=== PATIENT | male | born 1980 | race Caucasian/White ===

== ENCOUNTER 2018-09-05 11:02 | Emergency (ER) | payer OTHER ==
[2018-09-05 11:15] VITALS: BP 135/93
[2018-09-05] MEDS ORDERED: Naproxen TAB* 250 MG PO ONE (11:22)
--- NOTE | 2018-09-05 11:25 | UC ---
Hand/Wrist HPI - HPI Summary HPI Summary: 38-year-old male presents with reports of injury to his left hand. States just prior to arrival he was mowing lawn on a riding lawnmower and he accidentally struck his left hand on a wooden sign. States he has a laceration to the back of his left hand over the fifth MCP and complains of pain to the lateral aspect of his left hand. Pain worsens with any type of movement. Bleeding controlled prior to arrival. States his most recent tetanus was within the last 5 years. Denies any numbness or tingling. - History Of Current Complaint Chief Complaint: UCUpperExtremity Stated Complaint: HAND LACERATION Time Seen by Provider: 09/05/18 11:11 Hx Obtained From: Patient Pain Intensity: 7 - Allergies/Home Medications Allergies/Adverse Reactions: Allergies Allergy/AdvReac Type Severity Reaction Status Date / Time No Known Allergies Allergy Verified 09/05/18 11:10 PMH/Surg Hx/FS Hx/Imm Hx Previously Healthy: Yes - Denies significant PMH - Surgical History Surgical History: Yes Surgery Procedure, Year, and Place: 2007 L shoulder - Family History Known Family History: Positive: Non-Contributory - Social History Occupation: Employed Full-time Lives: With Family Alcohol Use: Occasionally Substance Use Type: None Smoking Status (MU): Heavy Every Day Tobacco Smoker Type: Cigarettes Amount Used/How Often: 1/2 ppd Have You Smoked in the Last Year: Yes Household Exposure Type: Cigarettes Review of Systems All Other Systems Reviewed And Are Negative: Yes Constitutional: Positive: Negative Skin: Positive: Other - See HPI Respiratory: Positive: Negative Cardiovascular: Positive: Negative Gastrointestinal: Positive: Negative Motor: Negative: Weakness Neurovascular: Negative: Decreased Sensation Musculoskeletal: Positive: Decreased ROM, Other: - See HPI Neurological: Positive: Negative Is Patient Immunocompromised?: No Physical Exam - Summary Physical Exam Summary: GENERAL APPEARANCE: Well developed, well nourished, alert and cooperative, and appears to be in no acute distress. CARDIAC: Normal S1 and S2. No S3, S4 or murmurs. Rhythm is regular. There is no peripheral edema, cyanosis or pallor. Extremities are warm and well perfused. Capillary refill is less than 2 seconds. Peripheral pulses intact. LUNGS: Clear to auscultation without rales, rhonchi, wheezing or diminished breath sounds. ABDOMEN: Positive bowel sounds. Soft, nondistended, nontender. No guarding or rebound. No masses or hepatosplenomegally. MUSKULOSKELETAL: Normal muscular development. Normal gait. EXTREMITIES: Tenderness over the left 5th metacarpal without gross deformity. There is ecchymosis to the palmar aspect of the the lateral left hand in the vicinity of his tenderness. Eccymosis with mild edema over the proximal phalanx of the left ring finger without gross deformity. Circulation and sensation intact. SKIN: Skin normal color, texture and turgor. Multiple abrasions noted to posterior left hand over the MCP. Bleeding controlled. Triage Information Reviewed: Yes Vital Signs: Initial Vital Signs Temp 98.1 F 09/05/18 11:10 Pulse 71 09/05/18 11:10 Resp 20 09/05/18 11:10 BP 135/93 09/05/18 11:10 Pulse Ox 99 09/05/18 11:10 Vital Signs Reviewed: Yes Procedures - Splinting Left Upper Extremity Hand-Made Type: orthoglass Splint: ulnar Pre-Proc Neuro Vasc Exam: normal Post-Proc Neuro Vasc Exam: normal Diagnostics - Radiology No standard instances Radiology Interpretation Completed By: Radiologist Summary of Radiographic Findings: Order Information: HAND - LEFT MINIMUM 3 VIEWS. Accession Number: [id number]. CPT: 93501. Indication: Left hand pain. 5 views of the left hand are reviewed. There is no fracture or dislocation noted. No other bone or joint abnormality is identified. IMPRESSION : No fracture of the left hand is noted. Hand/Wrist Course/Dx - Course Course Of Treatment: 38-year-old male presents with reports of injury to his left hand. States just prior to arrival he was mowing lawn on a riding lawnmower and he accidentally struck his left hand on a wooden sign. States he has a laceration to the back of his left hand over the fifth MCP and complains of pain to the lateral aspect of his left hand. Pain worsens with any type of movement. Bleeding controlled prior to arrival. States his most recent tetanus was within the last 5 years. Denies any numbness or tingling. Afebrile. Vital signs stable. Patient had tenderness over the left 5th metacarpal without gross deformity. There is ecchymosis to the palmar aspect of the the lateral left hand in the vicinity of his tenderness. Eccymosis with mild edema over the proximal phalanx of the left ring finger without gross deformity. Circulation and sensation intact. Multiple abrasions noted to posterior left hand over the MCP with bleeding controlled. X -ray showed no acute fracture. Will treat the patient for a contusion of the left hand. The abrasions were cleansed by the RN and a dressing was applied. I placed the patient and a ulnar splint using Ortho-Glass. Circulation and sensation were intact pre-and post-application. He is to follow-up with orthopedic surgery in 5-7 days if his symptoms are not improving. Anticipatory guidance and warning symptoms were reviewed with the patient. Verbalizes understanding and agrees with plan of care. - Differential Dx/Diagnosis Differential Diagnosis/HQI/PQRI: Abrasion, Contusion, Fracture, Sprain, Other - Laceration Provider Diagnosis: Contusion of left hand, Abrasion of left hand and fingers Discharge - Sign-Out/Discharge Documenting (check all that apply): Patient Departure All imaging exams completed and their final reports reviewed: Yes - Discharge Plan Condition: Stable Disposition: HOME Patient Education Materials: Contusion in Adults (ED), Abrasion (ED) Forms: *Work Release Referrals: Ronal Curran MD [Primary Care Provider] - Ludwin Lazaro MD [Medical Doctor] - 5 Days Additional Instructions: The x-ray performed in the clinic today showed no evidence of a fracture. I suspect that your have a contusion of the hand. Your abrasions to the back of your hand did not require any repair. You should wash these at least twice a day with a mild soap and water, apply an antibiotic ointment and keep covered with a bandage. Change the bandage twice daily or any time it becomes wet or soiled. Rest the hand as much as possible. Wear the splint that was applied in the clinic for comfort and support. Do not get this wet. You may remove to shower but should wear at all other times until you are pain free. Apply ice to the affected area for 15-20 minutes at least 4 times a day to help with the pain and swelling. Elevate the hand to help reduce swelling. Take acetaminophen (Tylenol) or ibuprofen (Advil, Motrin) according to directions as needed for pain. Follow up with orthopedic surgery in 5-7 days if symptoms do not improve. Seek immediate medical attention if you have severe pain not managed with pain medication, develop numbness or tingling in the hand or fingers, or have any worsening of symptoms. - Billing Disposition and Condition Condition: STABLE Disposition: Home
== END 2018-09-05 12:19 | disposition home or self-care (01) ==
LOC: UCEAST 11:02
DX: S60.222A Contusion of left hand, initial encounter (principal); S60.512A Abrasion of left hand, initial encounter; W22.8XXA Striking against or struck by other objects, initial encounter; Y93.H2 Activity, gardening and landscaping; Y92.017 Garden or yard in single-family (private) house as the place of occurrence of the external cause; Y99.8 Other external cause status; F17.210 Nicotine dependence, cigarettes, uncomplicated
CPT/HCPCS: 99202; A9270-GY; G0463